=== PATIENT | female | born 1985 | race Caucasian/White ===

== ENCOUNTER → 2018-01-03 17:57 | Outpatient (CLI) | payer OTHER, SELFPAY ==
--- NOTE | 2018-01-03 | DI.MRI.S_ITS ---
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 TECHNIQUE: Noncontrast axial T1 spin echo, axial T2 fast spin echo, sagittal and axial FLAIR, coronal T2 fast spin echo, axial gradient echo, axial diffusion and ADC through the brain. After the administration of contrast, axial and coronal 3D VIBE or T1 spin echo with fat saturation through the brain. COMPARISON: Outside Facility, , MRI BRAIN ([facility]) W/WO CONTRAST, 03/01/2016, 14:48. [facility], MR, BRAIN W&WO CONTRAST, 06/13/2017, 18:47. [facility], MR, BRAIN W&WO CONTRAST, 12/26/2016, 17:13. [facility], MR, BRAIN W&WO CONTRAST, 09/15/2016, 8:34. FINDINGS: Image quality: Excellent. CSF Spaces: Basal cisterns are patent. No new extra-axial fluid collections. There is expected postsurgical change of subtotal right temporal resection. Ventricles are stable in size with expected postsurgical change. Brain: No midline shift. No intracranial bleeds or masses. No abnormal intracranial enhancement. The brainstem appears normal. Diffusion-weighted images demonstrate no acute ischemic insults. No chronic ischemic insults. Normal intravascular flow voids are present. 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 No associated hemosiderin deposition. Skull and face: Calvarial marrow is normal in signal. Orbits appear normal. Sinuses: Sinuses and mastoids appear clear. IMPRESSION: Stable postsurgical change of subtotal right temporal resection as treatment for previously present grade 3 anaplastic astrocytoma. Stable appearance of a small incidentally noted inferior right cerebellar venous angioma. No sign of recurrent neoplasm. Dictated by: Sergey Herman M.D. on 01/04/2018 at 9:06 Approved by: Sergey Herman M.D. on 01/04/2018 at 9:11
== END ==
PROVIDERS: PCP Nurse Practitioner Gerontology; Visit Provider Nurse Practitioner Family
DX: C71.2 Malignant neoplasm of temporal lobe (principal)
CPT/HCPCS: 70553

== ENCOUNTER → 2018-07-26 16:20 | Outpatient (CLI) | payer OTHER, SELFPAY ==
--- NOTE | 2018-07-26 16:21 | DI.MRI.S_ITS ---
PROCEDURE: MR HEAD/BRAIN WO/W CON INDICATIONS: MALIGNANT NEOPLASM OF BRAIN,UNSPECIFIED TECHNIQUE: Noncontrast axial T1 spin echo, axial T2 fast spin echo, sagittal and axial FLAIR, coronal T2 fast spin echo, axial gradient echo, axial diffusion and ADC through the brain. After the administration of contrast, axial and coronal 3D VIBE or T1 spin echo with fat saturation through the brain. COMPARISON: [facility], MR, BRAIN W&WO CONTRAST, 06/13/2017, 18:47. [facility], MR, BRAIN W&WO CONTRAST, 12/26/2016, 17:13. [facility], MR, BRAIN W&WO CONTRAST, 09/15/2016, 8:34. Outside Facility, , MRI BRAIN ([facility]) W/WO CONTRAST, 03/01/2016, 14:48. [facility], , MR HEAD/BRAIN WO/W CON, 01/03/2018, 18:18. FINDINGS: Image quality: Excellent. CSF Spaces: Basal cisterns are patent. No extra-axial fluid collections. Ventricles are normal in size and shape. Brain: There is a prominent right temporal lobe resection. Minimal gliotic change can be seen along the margins of the resection cavity. No abnormal enhancement can be seen associated with the resection cavity. A stable venous angioma is again seen within the right cerebellum, as on series 15 image 70. No midline shift. No intracranial bleeds or masses. No abnormal intracranial enhancement. The brainstem appears normal. Diffusion-weighted images demonstrate no acute ischemic insults. No chronic ischemic insults. Normal intravascular flow voids are present. Skull and face: Right craniotomy changes are seen. Calvarial marrow is normal in signal. Orbits appear normal. Sinuses: Sinuses and mastoids appear clear. IMPRESSION: Stable postoperative study with resection of the majority of the right temporal lobe. No abnormal enhancement can be seen associated with the resection cavity. Stable right cerebellar venous angioma incidentally noted. Dictated by: Eugenio Gonzalez M.D. on 07/26/2018 at 17:45 Approved by: Eugenio Gonzalez M.D. on 07/26/2018 at 17:49
== END ==
PROVIDERS: PCP Nurse Practitioner Gerontology; Visit Provider Family Medicine
DX: C71.9 Malignant neoplasm of brain, unspecified (principal); D18.02 Hemangioma of intracranial structures
CPT/HCPCS: 70553

== ENCOUNTER → 2018-08-30 07:43 | Outpatient (CLI) | payer OTHER, SELFPAY ==
[2018-09-03 10:26] LABS: Levetiracetam Keppra 9.7 mcg/mL (12.0-46.0)
== END ==
PROVIDERS: Visit Provider Psychiatry & Neurology Neurology
DX: G40.109 Localization-related (focal) (partial) symptomatic epilepsy and epileptic syndromes with simple partial seizures, not intractable, without status epilepticus (principal)
CPT/HCPCS: 36415; 80177

== ENCOUNTER → 2019-01-23 16:43 | Outpatient (CLI) | payer OTHER, SELFPAY ==
--- NOTE | 2019-01-23 | DI.MRI.S_ITS ---
PROCEDURE: MR HEAD/BRAIN WO/W CON INDICATIONS: MALIGNANT NEOPLASM OF BRAIN, UNSPECIFIED TECHNIQUE: Noncontrast axial T1 spin echo, axial T2 fast spin echo, sagittal and axial FLAIR, coronal T2 fast spin echo, axial gradient echo, axial diffusion and ADC through the brain. After the administration of contrast, axial and coronal 3D VIBE or T1 spin echo with fat saturation through the brain. COMPARISON: [facility], , MR HEAD/BRAIN WO/W CON, 07/26/2018, 16:29. FINDINGS: Image quality: Excellent. CSF Spaces: Basal cisterns are patent. No extra-axial fluid collections. Ventricles are normal in size and shape. Brain: No midline shift. Grossly unchanged postoperative sequela from right craniotomy and right temporal lobe resection. Mild adjacent gliosis as before No intracranial bleeds or masses. Incidental common nonspecific partially empty sella appearance, as before. No abnormal intracranial enhancement. Incidental right cerebellar venous angioma. The brainstem appears normal. Diffusion-weighted images demonstrate no acute ischemic insults. No chronic ischemic insults. Normal intravascular flow voids are present. Skull and face: Calvarial marrow is normal in signal. Orbits appear normal. Sinuses: Sinuses and mastoids appear clear. IMPRESSION: Stable examination since 07/26/18. No suspicious enhancement Status post right craniotomy and unchanged postsurgical sequela. Dictated by: Eugenio Graves M.D. on 01/24/2019 at 8:12 Approved by: Eugenio Graves M.D. on 01/24/2019 at 8:19
== END ==
PROVIDERS: PCP Family Medicine; Visit Provider Family Medicine
DX: C71.9 Malignant neoplasm of brain, unspecified (principal); Z98.890 Other specified postprocedural states
CPT/HCPCS: 70553; A9579

== ENCOUNTER → 2019-08-29 13:50 | Outpatient (CLI) | payer OTHER, SELFPAY ==
--- NOTE | 2019-08-29 | DI.MRI.S_ITS ---
PROCEDURE: MR HEAD/BRAIN WO/W CON INDICATIONS: Malignant neoplasm of brain, reportedly a temporal lobe astrocytoma, previously resected TECHNIQUE: Noncontrast axial T1 spin echo, axial T2 fast spin echo, sagittal and axial FLAIR, coronal T2 fast spin echo, axial gradient echo, axial diffusion and ADC through the brain. After the administration of contrast, axial and coronal 3D VIBE or T1 spin echo with fat saturation through the brain. COMPARISON: [facility], , MR HEAD/BRAIN WO/W CON, 01/03/2018, 18:18. [facility], MR, BRAIN W&WO CONTRAST, 06/13/2017, 18:47. [facility], MR, BRAIN W&WO CONTRAST, 12/26/2016, 17:13. [facility], MR, BRAIN W&WO CONTRAST, 09/15/2016, 8:34. Outside Facility, , MRI BRAIN ([facility]) W/WO CONTRAST, 03/01/2016, 14:48. [facility], , MR HEAD/BRAIN WO/W CON, 01/23/2019, 16:56. [facility], , MR HEAD/BRAIN WO/W CON, 07/26/2018, 16:29. FINDINGS: Image quality: Excellent. CSF Spaces: Basal cisterns are patent. No extra-axial fluid collections. Ventricles are normal in size and shape. Brain: No midline shift. No intracranial bleeds or masses. There is expected postsurgical changes of right temporal lobe resection, including this been present on the initial available brain MRI dated 03/01/16. A preoperative study is not available for review. No abnormal intracranial enhancement. The brainstem appears normal. Diffusion-weighted images demonstrate no acute ischemic insults. No chronic ischemic insults. Normal intravascular flow voids are present. Skull and face: Calvarial marrow is normal in signal. Orbits appear normal. Sinuses: Sinuses and mastoids appear clear. IMPRESSION: Stable postoperative changes of right temporal lobe resection for reported prior temporal lobe astrocytoma resected prior to the February 2016 examination. No evidence of operative complication or development of recurrent neoplasm. Dictated by: Sergey Herman M.D. on 08/29/2019 at 15:02 Approved by: Sergey Herman M.D. on 08/29/2019 at 15:05
== END ==
PROVIDERS: PCP Family Medicine; Referring Provider Family Medicine; Visit Provider Family Medicine
DX: C71.9 Malignant neoplasm of brain, unspecified (principal)
CPT/HCPCS: 70553

== ENCOUNTER → 2025-01-29 12:08 | Outpatient (CLI) | payer OTHER, SELFPAY ==
--- NOTE | 2025-01-29 12:10 | DI.MRI.S_ITS ---
PROCEDURE: MR HEAD/BRAIN WO/W CON
== END ==
LOC: MRI 12:09
PROVIDERS: PCP Family Medicine; Referring Provider Nurse Practitioner; Visit Provider Nurse Practitioner
DX: C71.2 Malignant neoplasm of temporal lobe (principal); G93.89 Other specified disorders of brain
CPT/HCPCS: 70553; A9579